=== PATIENT | male | born 1960 | race African-American/Black ===

== ENCOUNTER 2021-09-03 22:58 | Emergency (ER) | payer OTHER ==
[~2021-09-03] VITALS: Ht 185.4 cm; Wt 82.0 kg
[2021-09-04] MEDS ORDERED: IBUPROFEN 400MG TABLET PO ONE
[2021-09-04] MEDS ORDERED: ONDANSETRON 4MG ODT PO ONE
[2021-09-04] MEDS ORDERED: SODIUM CHLORIDE 0.9% 1,000 ML IV ONE (00:30)
[2021-09-04 00:42] LABS: HEMATOCRIT. 43.7 % (42.0-52.0); MEAN CORPUSCULAR HEMOGLOBIN 29.9 pg (28.0-32.0); MEAN CORPUSCULAR VOLUME 87.3 fL (80.0-94.0); MEAN PLATELET VOLUME 7.4 fl (7.4-10.4); PLATELET 236 x1000/uL (130-400); RED BLOOD CELL COUNT 5.01 mill/uL (4.7-6.1); RED CELL DISTRIBUTION WIDTH 12.2 % (11.6-14.6)
[2021-09-04 00:49] LABS: CHLORIDE 109 mEq/L (98-107)
[2021-09-04 00:53] LABS: ETHANOL BLOOD < 10 mg/dL
[2021-09-04] MEDS ORDERED: TOPUD PO (02:17)
[2021-09-04] MEDS ORDERED: IBUP-2028 MT (02:18)
[2021-09-04 02:51] VITALS: BP 114/67
[2021-09-04 04:51] LABS: PLATELET ESTIMATE NORMAL
== END 2021-09-04 02:51 | disposition home or self-care (01) ==
LOC: ER 22:58
DX: K52.9 Noninfective gastroenteritis and colitis, unspecified (principal); Z20.822 Contact with and (suspected) exposure to COVID-19; F12.10 Cannabis abuse, uncomplicated
CPT/HCPCS: 36415; 71045; 76700; 80053; 80320; 83690; 83880; 84484; 85025; 87426; 93005; 99285; J7030; Q0162; G0480